=== PATIENT | female | born 1985 | race Caucasian/White ===

== ENCOUNTER → 2017-06-17 | Outpatient (CLI) | payer OTHER ==
--- NOTE | 2017-06-17 16:37 | US ---
EXAMINATION TYPE: US pelvic complete DATE OF EXAM: 06/17/2017 COMPARISON: US CLINICAL HISTORY: R10.31 ABD PAIN RLQ. Pt states palpable lump right groin x 2 years TECHNIQUE: Transabdominal (TA) Date of LMP: 06/03/2017 EXAM MEASUREMENTS: Uterus: 10.0 x 3.6 x 4.3 cm Endometrial Stripe: 1.0 cm Right Ovary: 3.1 x 1.7 x 1.9 cm Left Ovary: 2.8 x 2.0 x 2.3 cm 1. Uterus: Anteverted wnl 2. Endometrium: wnl 3. Right Ovary: wnl 4. Left Ovary: wnl 5. Bilateral Adnexa: wnl 6. Posterior cul-de-sac: wnl Pelvic structures appear wnl/ Within RLQ where pt feels palpable there is a solid, vascular lesion= 1.3 x 0.8 x 1.1 cm/ Appears unchanged from previous IMPRESSION: 1. Unremarkable pelvic ultrasound. 2. Overall similar size of the solid vascular palpable abnormality just deep to the subcutaneous soft tissues. Further evaluation with CT or MR could be performed for further localization and characteri zation.
== END | disposition home or self-care (01) ==
LOC: RADUSWWP 16:05
PROVIDERS: ATTEND Family Medicine
DX: R10.31 Right lower quadrant pain (principal)
CPT/HCPCS: 76856

== ENCOUNTER → 2017-07-06 | Outpatient (CLI) | payer OTHER ==
--- NOTE | 2017-07-06 16:14 | CT ---
EXAMINATION TYPE: CT abdomen pelvis w con DATE OF EXAM: 07/06/2017 COMPARISON: NONE INDICATION: Right side groin mass DLP: 557.2 mGycm, Automated exposure control for dose reduction was used. CONTRAST: 100 mL of Omnipaque 300. Study performed with Oral Contrast TECHNIQUE: Axial images were obtained from above the diaphragm to the pubic rami in the axial plane a t 5 mm thick sections. Reconstructed images are reviewed on the computer in the coronal plane. FINDINGS: Limited CT sections are obtained the lung bases. The lung bases are clear. CT ABDOMEN: Liver: Normal Spleen: Normal Pancreas: Normal Adrenal glands: The adrenal glands are normal. Gallbladder: Tiny cholelithiasis stones may be within the dependent portion of the gallbladder. Kidneys: No masses are evident. No hydronephrosis is present. No cysts are present. Delayed images were obtained through the kidneys, which remain unremarkable. Aorta: Normal Inferior vena cava: Normal. CT PELVIS: Loops of bowel within the abdomen and pelvis are normal. There are loops of bowel which are incom pletely distended or lack oral contrast limiting their evaluation. Appendix: Normal as visualized. Urinary bladder: Normal. Genitourinary structures: Uterus is unremarkable. Adnexal regions are clear. No free fluid is within the pelvis. Osseous structures: No suspicious lytic or sclerotic lesions. Spondylolysis of L5 is present. IMPRESSIONS: 1. Small amount of cholelithiasis. 2. Spondylolysis L5 3. No suspicious right groin mass identified within the [id number].
== END | disposition home or self-care (01) ==
LOC: RADCTMAIN 13:40
PROVIDERS: ATTEND Family Medicine
DX: K80.20 Calculus of gallbladder without cholecystitis without obstruction (principal)
CPT/HCPCS: 74177; Q9967

== ENCOUNTER → 2017-07-08 | Outpatient (CLI) | payer OTHER ==
--- NOTE | 2017-07-08 11:38 | US ---
EXAMINATION TYPE: US gallbladder DATE OF EXAM: 07/08/2017 COMPARISON: CT & US CLINICAL HISTORY: R10.84 ABD Pain, K80.[address] findings EXAM MEASUREMENTS: Liver Length: 16.1 cm Gallbladder Wall: 0.2 cm CBD: 0.3 cm Right Kidney: 10.8 x 4.9 x 4.7 cm Pancreas: wnl, tail obscured by bowel gas Liver: wnl Gallbladder: Gallstones not visualized with certainty, Phrygian cap at fundus/ wall not thickened Evidence for sonographic Velasco's sign: No CBD: wnl Right Kidney: wnl, lower pole gassed out IMPRESSION: 1. No definite cholelithiasis identified with certainty at this time.
== END ==
LOC: RADUSWWP 10:48
PROVIDERS: ATTEND Surgery
DX: R10.84 Generalized abdominal pain (principal)
CPT/HCPCS: 76705

== ENCOUNTER → 2018-07-19 | Outpatient (CLI) | payer OTHER ==
--- NOTE | 2018-07-19 21:14 | MR ---
EXAMINATION TYPE: MR brain wo/w con DATE OF EXAM: 07/19/2018 COMPARISON: Prior brain MR 03/29/2014 HISTORY: Syncope / Seizures TECHNIQUE: Multiplanar, multisequence images of the brain and brainstem is performed without and with IV contras t, utilizing 7 mL intravenous Gadavist . FINDINGS: Diffusion weighted images demonstrate no evidence of a recent infarct or other diffusion ab normality. There is no extra-axial fluid collection or significant interval change in white matter s ignal abnormality. No greater than 5 focal hyperintensities present on inversion recovery T2-weighted sequences in the right frontal white matter as on prior The ventricular system and cisternal spaces are normal in size and appearance. The brain volume is age appropriate. Midline structures demonstrate stable morphology, corpus callosum is somewhat thickened as compared t o normal. The craniocervical junction appears within normal limits. Post contrast images demonstrat e no abnormal enhancement. The dural venous sinuses appear patent. The visualized sinuses are clear a nd the globes are intact. IMPRESSION: Stable brain MRI. Corpus callosum shows stable thickening. No acute abnormality.
== END | disposition home or self-care (01) ==
LOC: RADMRIMAIN 18:35
PROVIDERS: ATTEND Psychiatry & Neurology Neurology
DX: R93.0 Abnormal findings on diagnostic imaging of skull and head, not elsewhere classified (principal); R56.9 Unspecified convulsions; R55 Syncope and collapse
CPT/HCPCS: 70553; A9581

== ENCOUNTER → 2018-10-06 | Outpatient (CLI) | payer OTHER | END | disposition home or self-care (01) | LOC: LABWHC1 14:33 | PROVIDERS: ATTEND Obstetrics & Gynecology | DX: Z34.81 Encounter for supervision of other normal pregnancy, first trimester (principal); Z3A.00 Weeks of gestation of pregnancy not specified | CPT/HCPCS: 36415; 84702 ==

== ENCOUNTER → 2022-08-07 | Outpatient (CLI) | payer OTHER ==
--- NOTE | 2022-08-10 06:45 | US ---
EXAMINATION TYPE: US thyroid st tissue head/neck DATE OF EXAM: 08/07/2022 COMPARISON: NONE CLINICAL HISTORY: E03.9 HYPOTHYROIDISM. Hypothyroid, on meds GLAND SIZE: Right Lobe: 4.2 x 1.1 x 1.1 cm Overall Parenchyma: homogenous Left Lobe: 3.4 x 1.0 x 0.9 cm Overall Parenchyma: homogeneous Isthmus Thickness: 0.2 cm NODULES RIGHT: # of nodules measured on right: 1 1. 0.5 X 0.5 x 0.5 cm, lower mid, solid or almost completely solid, hypoechoic nodule, which is wid er than tall, with smooth margins, without echogenic foci. TR - 4 Prior size: no prior LEFT: # of nodules measured on left: 0 ISTHMUS: # of nodules measured in the isthmus: 0 Bilateral neck scanned, no evidence of lymphadenopathy. IMPRESSION: 0.5 cm right thyroid lobe TR-4 nodule. No follow-up or FNA is recommended based on size. 2017 ACR TI-RADS LEVEL: TR-RADS 4 - Moderately Suspicious: Follow if > 1 cm, FNA if > 1.5 cm *Highest TI-RADS level nodule reported
== END | disposition home or self-care (01) ==
LOC: RADUSWWP 16:02
PROVIDERS: ATTEND Family Medicine
DX: E04.1 Nontoxic single thyroid nodule (principal)
CPT/HCPCS: 76536

== ENCOUNTER → 2023-08-24 | Outpatient (CLI) | payer OTHER ==
--- NOTE | 2023-08-24 15:03 | US ---
EXAMINATION TYPE: US thyroid st tissue head/neck DATE OF EXAM: 08/24/2023 COMPARISON: US 08/07/2022 CLINICAL INDICATION: Female, 38 years old with history of E04.1 SINGLE THYROID NUDULE; Patient is on synthroid. GLAND SIZE: Right Lobe: 4.4 x 1.4 x 0.9 cm Overall Parenchyma: homogenous Left Lobe: 3.9 x 0.9 x 1.0 cm Overall Parenchyma: homogeneous Isthmus Thickness: 0.19 cm NODULES RIGHT: # of nodules measured on right: 0 1. 0.7 X 0.5 x 0.5 cm, lower mid, solid or almost completely solid, hypoechoic nodule, which is as wide as it is tall, with smooth margins, without echogenic foci. Prior size: 0.5 x 0.5 x 0.5 cm -nodule has calcified border appearance. LEFT: # of nodules measured on left: 0 1. 0.5 X 0.4 x 0.3 cm, lower lateral, solid or almost completely solid, hypoechoic nodule, which is wider than tall, with smooth margins, without echogenic foci. Prior size: No prior ISTHMUS: # of nodules measured in the isthmus: 0 Bilateral neck scanned, no evidence of lymphadenopathy. IMPRESSION: Stable subcentimeter nodularity right thyroid lobe as well as a new centimeter nodule left thyroid lo be.
== END | disposition home or self-care (01) ==
LOC: RADUSWWP 14:05
PROVIDERS: ATTEND Family Medicine
DX: E04.2 Nontoxic multinodular goiter (principal)
CPT/HCPCS: 76536